=== PATIENT | female | born 1965 | race Two or more races ===

== ENCOUNTER 2018-10-22 19:12 | Emergency (ER) | payer OTHER ==
[~2018-10-22] VITALS: Ht 167.6 cm; Wt 75.7 kg
[2018-10-22] MEDS ORDERED: LEVAQUIN750 MG (19:46)
[2018-10-22] MEDS ORDERED: PHENAZOPYRIDIN200 MG (19:46)
[2018-10-22] MEDS ORDERED: ATORVASTATIN CA20 MG (19:47)
[2018-10-22] MEDS ORDERED: ED-SPAZ0.125 MG (19:47)
[2018-10-22] MEDS ORDERED: METHOTREXA25 MG/1 M6 (19:48)
[2018-10-22] MEDS ORDERED: SIMPONI50 MG/0.1 (19:49)
== END 2018-10-22 23:27 | disposition home or self-care (01) ==
LOC: ER 19:12
DX: N20.0 Calculus of kidney (principal); N39.0 Urinary tract infection, site not specified

== ENCOUNTER 2018-10-31 04:20 | Emergency (ER) | payer OTHER ==
[~2018-10-31] VITALS: Ht 167.6 cm; Wt 75.3 kg
[~2018-10-31 04:20] MED LIST: ATORVASTATIN CA20 MG; ED-SPAZ0.125 MG; LEVAQUIN750 MG; METHOTREXA25 MG/1 M6; PHENAZOPYRIDIN200 MG; SIMPONI50 MG/0.1
== END 2018-10-31 16:32 | disposition home or self-care (01) ==
LOC: ER 04:20
DX: N20.1 Calculus of ureter (principal); N28.1 Cyst of kidney, acquired; R10.31 Right lower quadrant pain

== ENCOUNTER 2018-12-11 09:22 | Emergency (ER) | payer OTHER ==
[~2018-12-11] VITALS: Ht 167.6 cm; Wt 74.8 kg
[2018-12-11] MEDS ORDERED: TAMS0.4C PO (09:32)
== END 2018-12-11 13:35 | disposition home or self-care (01) ==
LOC: ER 09:22
DX: N20.1 Calculus of ureter (principal); R10.31 Right lower quadrant pain

== ENCOUNTER 2025-09-08 11:13 | Inpatient (IN) | payer OTHER ==
[~2025-09-08] VITALS: Ht 167.6 cm; Wt 75.3 kg
[~2025-09-08 11:13] MED LIST changes: +TAMS0.4C PO
[2025-09-08] MEDS ORDERED: ONDANSETRON HCL 2 MG/ML VIAL IV ONE (13:00)
[2025-09-08] MEDS ORDERED: FAMOTIDINE/PF 20 MG/2 ML VIAL IV ONE (13:00)
[2025-09-08] MEDS ORDERED: 0.9 % SODIUM CHLORIDE 1,000 ML IV SCH (13:00)
[2025-09-08] MEDS ORDERED: CEFTRIAXONE SODIUM 1,000 MG VIAL IV ONE (13:00)
[2025-09-08] MEDS ORDERED: KETOROLAC TROMETHAMINE 30 MG VIAL IV ONE (13:15)
[2025-09-08 14:17] LABS: URINE APPEARANCE Clear; URINE BILIRRUBIN Negative (NEGATIVE); URINE BLOOD Negative; URINE COLOR Yellow; URINE GLUCOSE Negative (NEGATIVE); URINE KETONE Negative (NEGATIVE); URINE LEUKOCYTE Trace; URINE NITRATE Negative; URINE PROTEIN Negative (NEGATIVE); URINE UROBILINOGEN 0.2 E.U./dl
[2025-09-08 14:17] LABS: BASO % 0.3 % (0.1-1.2); EOS # 0.09 (0.04-0.54); EOS % 1.5 % (0.7-7.0); LYMPH # 1.79 (1.18-3.74); LYMPH % 30.0 % (19.3-53.1); MEAN PLATELET VOLUME 9.70 fl (9.4-12.4); MONO # 0.52 (0.24-0.82); MONO % 8.7 % (4.7-12.5); NEUT # 3.54 (1.56-6.13); NEUT % 59.3 % (34.0-71.1); RED CELL DISTRIBUTION WIDTH 12.1 % (11.6-14.4)
[2025-09-08 14:22] LABS: URINE BACTERIA 224.3 uL (0.0-1933); URINE EPITHELIAL CELLS 21.6 uL (0.0-38.8); URINE RBC 8.7 uL (0.0-20.8); URINE WBC 8.7 uL (0.0-23.2)
[2025-09-08 14:29] LABS: URINE CAST 0.14 uL (0.0-1.40)
[2025-09-08 14:38] LABS: COVID-19 AG NEGATIVE (NEGATIVE)
[2025-09-08 14:40] LABS: INR 1.04
[2025-09-08 14:48] LABS: ALT/SGPT 28.0 U/L (12-78); AST/SGOT 15.0 U/L (15-37); BILIRUBIN TOTAL 1.38 mg/dL (0.3-1.2); BUN CREA RATIO 20.0 (7.0-25.0); CREATININE SERUM 0.49 mg/dL (0.55-1.02); GFR 128.39; GLOBULINA 3.4 G/DL (2.4-3.5); GLUCOSE FASTING 98.0 mg/dL (65-100); OSMOLALITY SERUM 286.0 MOSM/KG (275-295)
[2025-09-08 14:49] LABS: ERYTHROCYTE SEDIMENTATION RATE 15 mm/hr (0-30)
[2025-09-08] MEDS ORDERED: PIPERACILLIN/TAZOBACTAM SODIUM 3.375 GM VIAL IV ONE (18:15)
[2025-09-08] MEDS ORDERED: MORPHINE SULFATE 4 MG/ML CARTRIDGE IV ONE (18:15)
[2025-09-08] MEDS ORDERED: hydrALAZINE HCL 20 MG VIAL IV PRN (19:00)
[2025-09-08] MEDS ORDERED: ACETAMINOPHEN 325 MG TABLET PO PRN (19:00)
[2025-09-08] MEDS ORDERED: ONDANSETRON HCL 4 MG in 0.9 % SODIUM CHLORIDE 50 ML IV PRN (19:00)
[2025-09-08] MEDS ORDERED: MORPHINE SULFATE 2 MG/ML SYRINGE IV PRN (19:00)
[2025-09-08] MEDS ORDERED: KETOROLAC TROMETHAMINE 30 MG VIAL IU PRN (19:00)
[2025-09-08 19:30] VITALS: BP 123/75
[2025-09-08 22:38] VITALS: BP 131/78; O2SAT 97
[2025-09-09] MEDS ORDERED: PIPERACILLIN/TAZOBACTAM SODIUM 3.375 GM in 0.9 % SODIUM CHLORIDE 100 ML IV SCH
[2025-09-09 00:15] VITALS: BP 119/73; O2SAT 97
[2025-09-09 08:19] VITALS: BP 132/78; O2SAT 99
[2025-09-09] MEDS ORDERED: FAMOTIDINE/PF 20 MG/2 ML VIAL IV SCH (09:00)
[2025-09-09] MEDS ORDERED: ACETAMINOPHEN 500 MG GEL..CAP PO PRN (13:45)
[2025-09-09 15:00] VITALS: BP 131/77; O2SAT 97
[2025-09-10] VITALS: BP 135/76; O2SAT 99
[2025-09-10 08:38] VITALS: BP 144/73; O2SAT 99
[2025-09-10] MEDS ORDERED: MORPHINE SULFATE 4 MG/ML CARTRIDGE IV PRN (11:27)
[2025-09-10 17:10] VITALS: BP 144/81; O2SAT 97
[2025-09-11 00:30] VITALS: BP 123/69; O2SAT 97
[2025-09-11 08:00] VITALS: BP 153/78; O2SAT 100
[2025-09-11] MEDS ORDERED: DIATRIZOATE MEGLUMINE, SODIUM 30 ML BOTTLE PO NR (08:00)
[2025-09-11 16:00] VITALS: BP 127/76; O2SAT 96
[2025-09-12] VITALS: BP 116/69; O2SAT 97
[2025-09-12 06:22] LABS: BASO % 0.5 % (0.1-1.2); EOS # 0.18 (0.04-0.54); EOS % 2.8 % (0.7-7.0); LYMPH # 1.34 (1.18-3.74); LYMPH % 20.8 % (19.3-53.1); MEAN PLATELET VOLUME 9.60 fl (9.4-12.4); MONO # 0.47 (0.24-0.82); MONO % 7.3 % (4.7-12.5); NEUT # 4.39 (1.56-6.13); NEUT % 68.1 % (34.0-71.1); RED CELL DISTRIBUTION WIDTH 11.9 % (11.6-14.4)
[2025-09-12 06:52] LABS: BUN CREA RATIO 13.0 (7.0-25.0); CREATININE SERUM 0.53 mg/dL (0.55-1.02); GFR 117.27; GLUCOSE FASTING 67.0 mg/dL (65-100); OSMOLALITY SERUM 281.0 MOSM/KG (275-295)
[2025-09-12 08:00] VITALS: BP 126/77; O2SAT 99
[2025-09-12] MEDS ORDERED: MORPHINE SULFATE 4 MG/ML VIAL IV PRN (15:15)
[2025-09-12 16:40] VITALS: BP 117/68; O2SAT 98
[2025-09-12] MEDS ORDERED: PEG3350/SOD SULF,BICARB,CL/KCL 4,000 ML GALLON PO NR (19:00)
[2025-09-13 00:53] VITALS: BP 147/82; O2SAT 98
[2025-09-13] MEDS ORDERED: NA PHOS,M-B/NA PHOS,DI-BA 1 BOTTLE ENEMA RECTAL NR (06:00)
[2025-09-13 08:00] VITALS: BP 134/76; O2SAT 98
[2025-09-13] MEDS ORDERED: MIDAZOLAM HCL 2 MG/2 ML VIAL IV ONE (15:30)
[2025-09-13] MEDS ORDERED: fentaNYL CITRATE 50 MCG/ML AMPUL IV ONE (15:30)
[2025-09-13] MEDS ORDERED: DIPHENHYDRAMINE HCL 50 MG/ML VIAL 1ML IV ONE (15:30)
[2025-09-13 18:13] VITALS: BP 135/76; O2SAT 99
[2025-09-14 02:20] VITALS: BP 137/72; O2SAT 99
[2025-09-14 08:00] VITALS: BP 134/79; O2SAT 99
[2025-09-14 13:00] VITALS: BP 96/60; O2SAT 96
[2025-09-14 18:06] VITALS: BP 133/69; O2SAT 98
[2025-09-15] MEDS ORDERED: SODIUM CL 0.9% 100 ML IV.SOLN IV ONE (00:06)
[2025-09-15 01:19] VITALS: BP 131/80; O2SAT 98
[2025-09-15 07:58] LABS: BUN CREA RATIO 8.0 (7.0-25.0); CREATININE SERUM 0.4 mg/dL (0.55-1.02); GFR 162.27; GLUCOSE FASTING 100.0 mg/dL (65-100); OSMOLALITY SERUM 283.0 MOSM/KG (275-295)
[2025-09-15 08:16] LABS: BASO % 0.6 % (0.1-1.2); EOS # 0.18 (0.04-0.54); EOS % 3.9 % (0.7-7.0); LYMPH # 1.36 (1.18-3.74); LYMPH % 29.4 % (19.3-53.1); MEAN PLATELET VOLUME 10.20 fl (9.4-12.4); MONO # 0.53 (0.24-0.82); MONO % 11.5 % (4.7-12.5); NEUT # 2.51 (1.56-6.13); NEUT % 54.4 % (34.0-71.1); RED CELL DISTRIBUTION WIDTH 12.2 % (11.6-14.4)
[2025-09-15] MEDS ORDERED: SUGAMMADEX SODIUM 200 MG/2 ML VIAL IV ONE (09:25)
[2025-09-15] MEDS ORDERED: FAMOTIDINE/PF 20 MG/2 ML VIAL ONE (09:38)
[2025-09-15 09:45] VITALS: BP 142/83; O2SAT 99
[2025-09-15] MEDS ORDERED: DEXTROSE 50 % IN WATER 0.5 G/ML DISP.SYRIN IV PRN (09:45)
[2025-09-15] MEDS ORDERED: OxyCODONE HCL 5 MG TABLET (ROXICODONE) PO PRN (09:45)
[2025-09-15] MEDS ORDERED: 0.9 % SODIUM CHLORIDE 1,000 ML IV SCH (09:45)
[2025-09-15] MEDS ORDERED: MORPHINE SULFATE 4 MG/ML VIAL IV PRN (09:45)
[2025-09-15] MEDS ORDERED: ONDANSETRON HCL 2 MG/ML VIAL IV PRN (09:45)
[2025-09-15] MEDS ORDERED: PIPERACILLIN/TAZOBACTAM SODIUM 3.375 GM VIAL IV ONE (12:19)
[2025-09-15] MEDS ORDERED: HYOSCYAMINE SULFATE 0.125 MG TAB.SUBL SL SCH (13:00)
[2025-09-15 13:08] LABS: BASO % 0.4 % (0.1-1.2); EOS # 0.08 (0.04-0.54); EOS % 1.1 % (0.7-7.0); LYMPH # 0.84 (1.18-3.74); LYMPH % 11.2 % (19.3-53.1); MEAN PLATELET VOLUME 9.50 fl (9.4-12.4); MONO # 0.36 (0.24-0.82); MONO % 4.8 % (4.7-12.5); NEUT # 6.14 (1.56-6.13); NEUT % 82.1 % (34.0-71.1); RED CELL DISTRIBUTION WIDTH 12.2 % (11.6-14.4)
[2025-09-15 13:36] LABS: BUN CREA RATIO 7.0 (7.0-25.0); CREATININE SERUM 0.45 mg/dL (0.55-1.02); GFR 141.65; GLUCOSE FASTING 147.0 mg/dL (65-100); OSMOLALITY SERUM 286.0 MOSM/KG (275-295)
[2025-09-15] MEDS ORDERED: ACETAMINOPHEN 500 MG GEL..CAP PO SCH (14:00)
[2025-09-15] MEDS ORDERED: METRONIDAZOLE/SODIUM CHLORIDE 500 MG/100 ML PIGGYBACK IV SCH (17:00)
[2025-09-15] MEDS ORDERED: GABAPENTIN 300 MG CAPSULE PO SCH (17:00)
[2025-09-15 17:53] VITALS: BP 133/74; O2SAT 97
[2025-09-15] MEDS ORDERED: FAMOTIDINE/PF 20 MG/2 ML VIAL IV PUSH SCH (21:00)
[2025-09-15] MEDS ORDERED: CELECOXIB 200 MG CAPSULE PO SCH (21:00)
[2025-09-15] MEDS ORDERED: POTASSIUM CHLORIDE/D5W 20 MEQ/1,000 ML PIGGYBAG IV ONE (22:00)
[2025-09-15] MEDS ORDERED: POTASSIUM CHLORIDE 20MEQ/100ML H2O PB IV ONE ×2 (22:49→23:45)
[2025-09-16 00:30] VITALS: BP 116/55; O2SAT 98
[2025-09-16 08:50] VITALS: BP 130/76; O2SAT 97
[2025-09-16 09:04] LABS: BASO % 0.4 % (0.1-1.2); EOS # 0.09 (0.04-0.54); EOS % 1.3 % (0.7-7.0); LYMPH # 1.15 (1.18-3.74); LYMPH % 16.0 % (19.3-53.1); MEAN PLATELET VOLUME 10.10 fl (9.4-12.4); MONO # 0.80 (0.24-0.82); MONO % 11.1 % (4.7-12.5); NEUT # 5.11 (1.56-6.13); NEUT % 71.1 % (34.0-71.1); RED CELL DISTRIBUTION WIDTH 12.6 % (11.6-14.4)
[2025-09-16 10:28] LABS: BUN CREA RATIO 5.0 (7.0-25.0); CREATININE SERUM 0.42 mg/dL (0.55-1.02); GFR 153.38; GLUCOSE FASTING 105.0 mg/dL (65-100); OSMOLALITY SERUM 285.0 MOSM/KG (275-295)
[2025-09-16 13:56] LABS: BUN CREA RATIO 5.0 (7.0-25.0); CREATININE SERUM 0.42 mg/dL (0.55-1.02); GFR 153.38
[2025-09-16 13:57] LABS: GLUCOSE FASTING 105.0 mg/dL (65-100); OSMOLALITY SERUM 285.0 MOSM/KG (275-295)
[2025-09-16] MEDS ORDERED: ONDANSETRON HCL 2 MG/ML VIAL IM SCH (14:00)
[2025-09-16 16:00] VITALS: BP 153/88; O2SAT 97
[2025-09-16] MEDS ORDERED: ENOXAPARIN SODIUM 40 MG/0.4 ML SYRINGE SUBCUTANEO SCH (17:00)
[2025-09-16] MEDS ORDERED: SODIUM CL 0.9% 100 ML IV.SOLN IV ONE (22:22)
[2025-09-17 01:17] VITALS: BP 142/77; O2SAT 100
[2025-09-17] MEDS ORDERED: SODIUM CL 0.9% 100 ML IV.SOLN IV ONE (03:49)
[2025-09-17] MEDS ORDERED: ENOXAPARIN SODIUM 40 MG/0.4 ML SYRINGE SUBCUTANEO SCH (09:00)
[2025-09-17] MEDS ORDERED: POTASSIUM CHLORIDE 10 MEQ CAPSULE PO NR (11:00)
[2025-09-17] MEDS ORDERED: NAPH,MB-DB/K PH,MBDB 1 PKT PACKET PO SCH (13:00)
[2025-09-17] MEDS ORDERED: TRAM1TAB98 PO (13:48)
[2025-09-17] MEDS ORDERED: HYOSCYAMINE0.125 M1 SL (13:48)
[2025-09-17] MEDS ORDERED: PEPCID AC20 MG PO (13:48)
== END 2025-09-17 17:52 | disposition home or self-care (01) | DRG 390 ==
LOC: ER 11:13 → SURH 19:42
PROVIDERS: Student in an Organized Health Care Education/Training Program; Surgery; ADMIT Internal Medicine; ATTEND Internal Medicine
PROC: BW21ZZZ Computerized Tomography (CT Scan) of Abdomen and Pelvis (ICD-10-PCS; 2025-09-08)
PROC: BW21YZZ Computerized Tomography (CT Scan) of Abdomen and Pelvis using Other Contrast (ICD-10-PCS; 2025-09-11)
PROC: 0DJD8ZZ Inspection of Lower Intestinal Tract, Via Natural or Artificial Opening Endoscopic (ICD-10-PCS; principal; 2025-09-13)
DX: K56.1 Intussusception (principal)